=== PATIENT | male | born 1990 | race Caucasian/White ===

== ENCOUNTER 2016-11-20 20:01 | Emergency (ER) | payer MEDICAID ==
[~2016-11-20] VITALS: Ht 162.6 cm; Wt 71.2 kg
[2016-11-20 20:41] VITALS: BP 132/83
== END 2016-11-20 20:41 | disposition home or self-care (01) ==
LOC: ED 20:01
DX: L03.116 Cellulitis of left lower limb (principal); F17.200 Nicotine dependence, unspecified, uncomplicated